=== PATIENT | female | born 1960 | race Caucasian/White ===

== ENCOUNTER → 2019-02-16 | Outpatient (CLI) | payer BC ==
[~2019-02-16] MED LIST: ADVAIR HFA115 MCG/21 INH; ATORVASTATIN CA40 MG PO; DOXYCYCLINE 10100 MG PO; HYDROCHLOROTHIA25 M2 PO; LEVAQUIN 500 M500 M2 PO; LEVOTHYROXIN0.025 MG PO; MOBIC15 MG PO; MUCINEX600 MG PO; PROAIR HFA8.5 GM INH; SYMBICORT160 MCG/4. INH; TERBINAFINE HC250 MG PO; VITAMIN D250000 UNIT PO
== END ==
LOC: M.RAD 17:01
DX: M43.16 Spondylolisthesis, lumbar region (principal); M47.896 Other spondylosis, lumbar region; M25.78 Osteophyte, vertebrae; M48.07 Spinal stenosis, lumbosacral region

== ENCOUNTER 2021-08-06 08:30 | Inpatient (IN) | payer OTHER ==
[~2021-08-06] VITALS: Ht 177.8 cm; Wt 95.3 kg
[2021-08-06] MEDS ORDERED: BASAGLAR K100 UNIT/1 (08:50)
[2021-08-06 08:56] VITALS: BP 142/99
--- NOTE | 2021-08-06 09:01 | NUR ---
PT O2 SAT 80% IN TRIAGE. PT TAKEN TO ROOM #[address] ERICKSON NOTIFIED.
--- NOTE | 2021-08-06 10:23 | EKG ---
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 Tender: [facility], [place] : 1960 Requested By: Jay Srinivasan Order Number: [id number] MD: Raza Osborne Measurements Intervals [place] Rate: 83 P: 64 MA: 158 QRS: -1 QRSD: 104 T: 29 QT: 398 QTc: 468 Interpretive Statements Sinus rhythm baseline wander Left atrial enlargement Compared to ECG 07/30/2016 02:44:53 Atrial abnormality now present Electronically Signed On 08-06-2021 10:23:31 CONDITIONING COACH by Raza Osborne [email or web address] <ELECTRONICALLY SIGNED> By: Raza Osborne MD, [facility] 08/06/21 1023 2 2 Raza Osborne MD, [facility] /EPI
[2021-08-06 10:24] LABS: ABSOLUTE LYMPHOCYTES 0.8 thou/uL (0.8-5.3); ABSOLUTE MONOCYTES 0.4 thou/uL (0.0-1.2); ABSOLUTE NEUTROPHILS 4.7 thou/uL (1.6-8.1); BASOPHILS 0.5 %; EOSINOPHILS 0.3 %; HEMATOCRIT 39.9 % (37.0-47.0); HEMOGLOBIN 13.2 gm/dL (12.0-15.0); LYMPHOCYTES 14.2 %; MCH 26.5 pg (26.0-34.0); MCHC 33.1 g/dL (28.0-37.0); MONOCYTES 6.3 %; MPV 8.1 fl. (7.2-11.1); NUCLEATED RBCS 0 /100WBC; PLATELET COUNT* 201 thou/uL (150-400); POLYS 78.7 %; RBC 4.99 mil/uL (4.20-5.00); RDW-CV 15.4 % (10.5-14.5)
[2021-08-06 10:31] LABS: CALCIUM 8.6 mg/dL (8.5-10.1); CREATININE 1.4 mg/dL (0.6-1.3); POTASSIUM 3.6 mmol/L (3.5-5.1)
[2021-08-06 10:42] LABS: ALBUMIN 2.5 g/dL (3.4-5.0); TOTAL BILIRUBIN 0.6 mg/dL (<0.1-1.0); TOTAL PROTEIN 7.4 g/dL (6.4-8.2)
[2021-08-06 15:00] VITALS: BP 135/88
[2021-08-06 21:00] VITALS: BP 151/83
--- NOTE | 2021-08-06 23:30 | NUR ---
BLOOD GLUCOSE 576. DR. CHRISTOPHER NEW ORDERS. LISPRO 10 UNITS IV NOW. CHANGE SS TO HIGH DOSE.
[2021-08-07 00:22] LABS: PCO2 42.9 mmHg (35.0-45.0); pH 7.401 (7.340-7.450)
[2021-08-07 00:25] LABS: PO2 57.3 mmHg (75.0-100.0)
[2021-08-07 01:13] VITALS: BP 150/82
[2021-08-07 03:32] LABS: HEMATOCRIT 39.7 % (37.0-47.0); HEMOGLOBIN 12.9 gm/dL (12.0-15.0); MCH 26.3 pg (26.0-34.0); MCHC 32.6 g/dL (28.0-37.0); MCV 80.6 fL (80.0-100.0); RBC 4.93 mil/uL (4.20-5.00); RDW-CV 15.5 % (10.5-14.5)
[2021-08-07 04:00] VITALS: BP 144/81
[2021-08-07 04:02] LABS: CALCIUM 8.5 mg/dL (8.5-10.1); CREATININE 1.3 mg/dL (0.6-1.3)
[2021-08-07 08:00] VITALS: BP 147/88
[2021-08-07 09:19] LABS: CALCIUM 8.7 mg/dL (8.5-10.1); CREATININE 1.3 mg/dL (0.6-1.3); POTASSIUM 4.4 mmol/L (3.5-5.1)
[2021-08-07 10:18] LABS: APTT 23.2 Seconds (25.0-31.3); PROTIME 9.9 Seconds (9.20-11.50)
[2021-08-07 12:00] VITALS: BP 138/83
[2021-08-07 20:00] VITALS: BP 120/68
[2021-08-08] VITALS: BP 110/61
--- NOTE | 2021-08-08 02:55 | NUR ---
PT REPORT TO CHELO TROTTER AT THIS TIME.
[2021-08-08 03:54] LABS: HEMATOCRIT 39.6 % (37.0-47.0); HEMOGLOBIN 12.9 gm/dL (12.0-15.0); MCH 26.2 pg (26.0-34.0); MCHC 32.5 g/dL (28.0-37.0); MCV 80.7 fL (80.0-100.0); MPV 8.4 fl. (7.2-11.1); RBC 4.91 mil/uL (4.20-5.00); RDW-CV 15.4 % (10.5-14.5); WBC 5.9 thou/uL (4.0-11.0)
[2021-08-08 04:15] LABS: CALCIUM 9.1 mg/dL (8.5-10.1); CREATININE 1.3 mg/dL (0.6-1.3); POTASSIUM 3.8 mmol/L (3.5-5.1)
--- NOTE | 2021-08-08 09:37 | NUR ---
Pt is admitted to the hospital on 08/06/21 with Covid 19/Respiratory Failure. Called jerry Grover at: [phone] to complete assessment. Pt lives alone in a house with 3 steps to enter. Pt was previously independent with ADL's and Mobility. No hx of SNF/HH/ or DME. Pt has no PCP. Dtr reports she does have DPOA but it was completed several years ago and has her old address on paperwork. Discussed we could complete new DPOA paperwork and dtr agreed to discuss with pt. CM to continue to follow for discharge planning.
[2021-08-08 09:41] VITALS: BP 129/77
[2021-08-08 12:00] VITALS: BP 132/77
[2021-08-08 16:00] VITALS: BP 121/77
[2021-08-08 20:00] VITALS: BP 144/79
[2021-08-08 23:35] VITALS: BP 163/90
[2021-08-09 02:07] LABS: GLYCOHEMOGLOBIN (HGB A1C) 14.7 % (4.8-5.6)
[2021-08-09 03:51] VITALS: BP 139/88
--- NOTE | 2021-08-09 04:21 | NUR ---
ASSUMED PT CARE AT APPROX 1930. PT IS AWAKE AND ORIENTED X4. PT IS TRACING SR ON THE SECURITY ASSURANCE SPECIALIST. PT DENIES PAIN/DISCOMFORT. PT IS NOT IN RESPIRATORY DISTRESS, NO DESATURATIONS NOTED ON 55L/85% FIO2 OF O2 VIA HEATED HIGH FLOW NASAL CANNULA. PT IS ABLE TO REST MOST OF THE NIGHT. NO ACUTE CHANGES THIS SHIFT. CALL LIGHT WITHIN REACH. HOURLY ROUNDING DONE FOR PT SAFETY. FALL PRECAUTIONS IN PLACE.
[2021-08-09 04:54] LABS: ABSOLUTE LYMPHOCYTES 0.6 thou/uL (0.8-5.3); ABSOLUTE MONOCYTES 0.5 thou/uL (0.0-1.2); ABSOLUTE NEUTROPHILS 5.2 thou/uL (1.6-8.1); BASOPHILS 0.5 %; HEMATOCRIT 39.7 % (37.0-47.0); HEMOGLOBIN 13.1 gm/dL (12.0-15.0); LYMPHOCYTES 9.1 %; MCHC 32.9 g/dL (28.0-37.0); MCV 79.1 fL (80.0-100.0); MONOCYTES 8.1 %; MPV 8.2 fl. (7.2-11.1); NUCLEATED RBCS 0 /100WBC; PLATELET COUNT* 335 thou/uL (150-400); POLYS 82.3 %; RBC 5.02 mil/uL (4.20-5.00); RDW-CV 15.1 % (10.5-14.5); WBC 6.3 thou/uL (4.0-11.0)
[2021-08-09 05:19] LABS: ALBUMIN 2.3 g/dL (3.4-5.0); CALCIUM 8.9 mg/dL (8.5-10.1); CREATININE 1.1 mg/dL (0.6-1.3); MAGNESIUM 2.2 mg/dL (1.8-2.4); POTASSIUM 4.2 mmol/L (3.5-5.1); TOTAL BILIRUBIN 0.4 mg/dL (<0.1-1.0); TOTAL PROTEIN 6.4 g/dL (6.4-8.2)
[2021-08-09 07:35] VITALS: BP 148/98
[2021-08-09 12:13] VITALS: BP 146/84
[2021-08-09 16:00] VITALS: BP 138/87
--- NOTE | 2021-08-09 17:19 | NUR ---
CM FOLLOWUP PT NOT MED CLEAR AND ON HIFLOW O2. CM TO FOLLOW FOR DC NEEDS.
[2021-08-09 20:00] VITALS: BP 141/78
[2021-08-10] VITALS: BP 148/81
[2021-08-10 04:00] VITALS: BP 147/79
--- NOTE | 2021-08-10 05:16 | NUR ---
ASSUMED CARE OF PT AFTER REPORT AT 1930. PT A&OX4. VSS. PHYSICAL ASSESSMENT COMPLETED AND CHARTED. PT ON HFNC 15L/BIPAP AT . PT TRACING SR ON TELE. PT UPADLIB TO BS. PT DENIES ANY PAIN. CALL LIGHT WITHIN REACH.
[2021-08-10 08:00] VITALS: BP 129/71
[2021-08-10 11:55] VITALS: BP 151/72
[2021-08-10 16:00] VITALS: BP 131/83
--- NOTE | 2021-08-10 17:28 | NUR ---
CM FOLLOWUP PT NOT MED CLEAR AND ON 15L O2. CM TO FOLLOW FOR FUTURE DC NEEDS.
--- NOTE | 2021-08-10 18:47 | NUR ---
PT ALERT AND ORIENTED. PT HAS BEEN ON 15L HIGH FLOW. PT IS ABLE TO GET UP AND AMBULATE TO THE BSC, WITH STEADY GAIT. PT HAS BEEN SR ALL DAY AND OXYGEN SATS HAVE BEEN IN THE 90'S. WILL CONTINUE TO MONITOR PLAN OF CARE.
[2021-08-10 20:00] VITALS: BP 142/82
[2021-08-11] VITALS (7 sets, daily range): BP systolic 122–140; BP diastolic 67–86
--- NOTE | 2021-08-11 03:18 | NUR ---
ASSUMED CARE OF PT AFTER REPORT AT 1930. PT A&OX4. VSS. PHYSICAL ASSESSMENT COMPLETED AND CHARTED. PT ON [facility] 10L-REFUSED BIPAP. PT TRACING SR ON TELE.PT UPADLIB TO BSC. PT DENIES ANY PAIN. CALL LIGHT WITHIN REACH.
[2021-08-11 05:14] LABS: ABSOLUTE LYMPHOCYTES 0.8 thou/uL (0.8-5.3); ABSOLUTE MONOCYTES 0.5 thou/uL (0.0-1.2); ABSOLUTE NEUTROPHILS 4.4 thou/uL (1.6-8.1); BASOPHILS 0.2 %; EOSINOPHILS 0.1 %; HEMATOCRIT 40.7 % (37.0-47.0); HEMOGLOBIN 13.2 gm/dL (12.0-15.0); LYMPHOCYTES 13.3 %; MCHC 32.5 g/dL (28.0-37.0); MONOCYTES 8.3 %; MPV 7.9 fl. (7.2-11.1); NUCLEATED RBCS 0 /100WBC; PLATELET COUNT* 336 thou/uL (150-400); POLYS 78.1 %; RBC 5.09 mil/uL (4.20-5.00); RDW-CV 15.3 % (10.5-14.5); WBC 5.7 thou/uL (4.0-11.0)
[2021-08-11 05:37] LABS: ALBUMIN 2.3 g/dL (3.4-5.0); CALCIUM 8.8 mg/dL (8.5-10.1); POTASSIUM 3.7 mmol/L (3.5-5.1); TOTAL BILIRUBIN 0.5 mg/dL (<0.1-1.0); TOTAL PROTEIN 6.6 g/dL (6.4-8.2)
[2021-08-11] MEDS ORDERED: PROAIR HFA8.5 GM INH (13:40)
[2021-08-11] MEDS ORDERED: TESSALON PERLE100 MG PO (13:40)
[2021-08-11] MEDS ORDERED: PREDNISONE 10 M10 MG PO (13:40)
[2021-08-11] MEDS ORDERED: LEVOFLOXACIN500 MG PO (13:40)
--- NOTE | 2021-08-11 16:14 | NUR ---
CM FOLLOWUP PT IS MED CLEAR FOR DC HOME WITH 02. OXYGEN TO BE PROVIDED BY [facility] ([phone]). [facility] TO DROP OFF PT'S O2 TANK AND CONCENTRATOR TO THE RN DESK BETWEEN 5PM AND 6PM. [facility] TO COVER COST OF O2 FOR ONE MONTH.
--- NOTE | 2021-08-11 19:33 | NUR ---
Assumed care at 1000am. Pt is alert and oriented. Assessment done. Pt was dc'd at 1815. Pt Left with her daughter. Pt left with oxygen task. Pt was grateful for the care she received here.
--- NOTE | 2021-08-14 18:57 | CON ---
[address] [address] CONSULTATION Name: YVONNE DAMIAN Room: [address] [facility].#: [id number] Admission: 08/06/21 Attend Phys: Kenneth Brand MD Discharge: 08/11/21 Date of : 60 Report #: [id number] THIS REPORT FOR: cc: RAHEEM - Ade family physician/PCP RAHEEM - No family physician/PCP Neville Mora MD ~ DATE OF CONSULTATION: 08/07/2021 REQUESTING PHYSICIAN: Dr. Burch. INDICATION FOR CONSULTATION: Acute hypoxemic respiratory failure secondary to COVID-19. HISTORY OF PRESENT ILLNESS: This is a 60 years old female with history of bronchial asthma as well as sarcoidosis and diabetes, unvaccinated for COVID-19, lifetime nonsmoker, admitted with acute hypoxemic respiratory failure secondary to COVID-19, has had fever, body aches, cough, increasing shortness of breath, not much sputum, has been fatigued, not much swelling of lower extremities, currently is on heated high-flow nasal cannula 100% FiO2. O2 saturation, however, with this has come up to around 98%. Glucoses are halina-high at [phone] today. REVIEW OF SYSTEMS: The patient's review of systems for 12 points is negative except as mentioned above. PAST MEDICAL HISTORY: Bronchial asthma, sarcoidosis, diabetes, hyperlipidemia, hypertension, hypothyroidism. The patient's baseline creatinine from 2017 is 0.9. I do not have a more recent creatinine before this admission available. SOCIAL HISTORY: Lifetime nonsmoker. No known history of heavy alcohol use or illegal drug use. ALLERGIES: IV DYE. FAMILY HISTORY: There are other members of the family who are also having COVID-19. CURRENT MEDICATIONS: List in [employer] reviewed. HOME MEDICATIONS: List in [employer] reviewed. PHYSICAL EXAMINATION: GENERAL: She is alert, awake and oriented. VITAL SIGNS: In the records reviewed. NECK: [place] [address] CONSULTATION Name: YVONNE DAMIAN Room: [address] IN [facility].#: [id number] Admission: 08/06/21 Attend Phys: Kenneth Brand MD Discharge: 08/11/21 Date of : 60 Report #: [id number] CHEST: Breath sounds are bilaterally equal. No added sounds. HEART: Regular. No murmur. ABDOMEN: Soft and nontender. EXTREMITIES: Lower extremities, no edema, no calf tenderness. LABORATORY DATA: Chest x-ray from yesterday is reviewed. I had another chest x-ray performed now as well. There are extensive bilateral infiltrates consistent with COVID-19 on both these x-rays. The second chest x-ray looks slightly worse than the first. ASSESSMENT AND PLAN: 1. Acute hypoxemic respiratory failure secondary to COVID-19. Avoid supine sleep, titrate oxygen, prone position preferred. If she declines or fails to improve, then we will have a low threshold of adding a BiPAP while asleep. 2. COVID-19. Recommend increasing dexamethasone dose due to severe hypoxemia. Since she has significant hyperglycemia as well, I only ordered 8 mg b.i.d. of dexamethasone. We will start remdesivir. Recommend giving her Actemra if available. 3. Pulmonary infiltrates. We will continue with ceftriaxone, give her at least some MRSA coverage if I switched azithromycin over to doxycycline. We will do a nasal swab for MRSA and sputum culture. 4. Bronchial asthma. We will also give her nebulized bronchodilators. 5. Sarcoidosis. She is on a steroid as above. 6. Uncontrolled diabetes. I called and discussed with Dr. Burch. The patient may need an insulin drip to control blood glucoses. We initially decided to increase subcutaneous insulin and follow response. At this time, I continued other subcutaneous insulin as previously ordered and increased the Lantus. Likely, she will need further increase in insulin to achieve control tomorrow. 7. Acute renal insufficiency. Watch creatinine closely. If failed to normalize tomorrow, then consider a renal ultrasound. 8. Deep venous thrombosis prophylaxis, on Lovenox. 9. Evaluation for thromboembolic phenomena. Creatinine is elevated. She is high risk for contrast IV DYE injury, also has AN ALLERGY TO CONTRAST. We will therefore only do venous Dopplers. 10. Clostridium difficile prophylaxis, Lactinex. 11. Gastrointestinal prophylaxis. She is on Protonix. The patient [place] [address] CONSULTATION Name: YVONNE DAMIAN Room: [address] IN [facility]#: [id number] Admission: 08/06/21 Attend Phys: Kenneth Brand MD Discharge: 08/11/21 Date of : 60 Report #: [id number] Total time spent providing critical care to this patient today exceeds 38 minutes. <ELECTRONICALLY SIGNED> By: Neville Mora MD 08/14/21 1857 [id number] [id number] Mora MD /nt
== END 2021-08-11 15:00 | disposition home or self-care (01) | DRG 177 ==
LOC: M.ERS 08:30 → M.TBA-ER 10:33 → M.ORTHSURG 08-08 10:06
PROVIDERS: Family Medicine; Internal Medicine; Internal Medicine Critical Care Medicine; Personal Emergency Response Attendant; ADMIT Internal Medicine; ATTEND Internal Medicine
PROC: XW033E5 Introduction of Remdesivir Anti-infective into Peripheral Vein, Percutaneous Approach, New Technology Group 5 (ICD-10-PCS; principal; 2021-08-07)
PROC: 5A0945A Assistance with Respiratory Ventilation, 24-96 Consecutive Hours, High Flow/Velocity Cannula (ICD-10-PCS; principal; 2021-08-07)
PROC: 5A09357 Assistance with Respiratory Ventilation, Less than 24 Consecutive Hours, Continuous Positive Airway Pressure (ICD-10-PCS; 2021-08-08)
PROC: 5A0935A Assistance with Respiratory Ventilation, Less than 24 Consecutive Hours, High Flow/Velocity Cannula (ICD-10-PCS; 2021-08-09)
PROC: 5A0945A Assistance with Respiratory Ventilation, 24-96 Consecutive Hours, High Flow/Velocity Cannula (ICD-10-PCS; 2021-08-09)
PROC: 5A0935A Assistance with Respiratory Ventilation, Less than 24 Consecutive Hours, High Flow/Velocity Cannula (ICD-10-PCS; 2021-08-10)
PROC: 5A09357 Assistance with Respiratory Ventilation, Less than 24 Consecutive Hours, Continuous Positive Airway Pressure (ICD-10-PCS; 2021-08-10)
PROC: 5A0935A Assistance with Respiratory Ventilation, Less than 24 Consecutive Hours, High Flow/Velocity Cannula (ICD-10-PCS; 2021-08-11)
DX: U07.1 COVID-19 (principal); J96.01 Acute respiratory failure with hypoxia; J12.82 Pneumonia due to coronavirus disease 2019; N17.0 Acute kidney failure with tubular necrosis; J45.909 Unspecified asthma, uncomplicated; D86.0 Sarcoidosis of lung; E78.5 Hyperlipidemia, unspecified; E11.65 Type 2 diabetes mellitus with hyperglycemia; I10 Essential (primary) hypertension; E89.0 Postprocedural hypothyroidism; G89.29 Other chronic pain; M54.9 Dorsalgia, unspecified; Z79.51 Long term (current) use of inhaled steroids; Z79.899 Other long term (current) drug therapy; Z91.041 Radiographic dye allergy status